=== PATIENT | female | born 1935 | race Caucasian/White ===

== ENCOUNTER 2016-12-17 00:09 | Emergency (ER) | payer MEDICARE, MEDICAID ==
[~2016-12-17] VITALS: Ht 152.4 cm; Wt 90.0 kg
[2016-12-17 00:18] VITALS: Ht 152.4 cm; Wt 90.0 kg
[2016-12-17] MEDS ORDERED: ONDANSETRON 4 MG INJ IV STA (00:21)
[2016-12-17] MEDS ORDERED: SOD CHLORIDE 0.9% 500 ML IV STA (00:21)
[2016-12-17] MEDS ORDERED: morphine 4 MG/ML VIAL IV STA (00:21)
--- NOTE | 2016-12-17 00:42 | ERD ---
ER Documentation Chief Complaint Date/Time DATE: 12/17/16 TIME: 00:41 Chief Complaint bib RA for suspected UTI- suprapubic pain, dysuria HPI This is a 81-year-old female brought in by rescue for suspected UTI. She is in significant pain dysuria for the past 2-3 days. No nausea no vomiting or chills. No other current complaints. ROS All systems reviewed and are negative except as per history of present illness. Physical Exam Vitals Vital Signs Date Time Temp Pulse Resp B/P Pulse Ox O2 Delivery O2 Flow Rate FiO2 12/17/16 00:18 99.4 77 17 149/66 96 Physical Exam Const: [] Head: Atraumatic Eyes: Normal Conjunctiva ENT: Normal External Ears, Nose and Mouth. Neck: Full range of motion..~ No meningismus. Resp: Clear to auscultation bilaterally Cardio: Regular rate and rhythm, no murmurs Abd: Soft, non tender, non distended. Normal bowel sounds Skin: No petechiae or rashes Back: No midline or flank tenderness Ext: No cyanosis, or edema Neur: Awake and alert Psych: Normal Mood and Affect Results 24 hrs Current Medications Medications (Trade) Dose Ordered Sig/Praveen Route PRN Reason Start Time Stop Time Status Last Admin Dose Admin Sodium Chloride (NS) 500 ml @ 500 mls/hr Q1H STAT IV 12/17/16 00:21 12/17/16 01:20 Morphine Sulfate (morphine) 4 mg ONCE STAT IV 12/17/16 00:21 12/17/16 00:22 DC Ondansetron HCl (Zofran Inj) 4 mg ONCE STAT IV 12/17/16 00:21 12/17/16 00:22 DC Procedures/MDM Patient decided to sign out AGAINST MEDICAL ADVICE prior to full evaluation. Patient wants to follow-up at [facility] with his records with her. Family will take it at [facility]. Upon signing out AMA, patient was alert and oriented 4 with goal oriented speech with good decision-making capacity and ability to negotiate the community. Patient understood risks of signing out AGAINST MEDICAL ADVICE, including but not limited to possible due to current condition. She demonstrated this understanding by repeating the risks back in her own words Departure Diagnosis: Primary Impression: Genitourinary symptoms Condition: Stable KHANG LUONG DrewAgatha Dec 17, 2016 00:41
== END 2016-12-17 00:28 | disposition left against medical advice (07) ==
LOC: E/R 00:09
DX: R39.9 Unspecified symptoms and signs involving the genitourinary system (principal)
CPT/HCPCS: 99282; J7040